=== PATIENT | female | born 1950 | race Caucasian/White ===

== ENCOUNTER 2017-06-29 15:29 | Outpatient (CLI) | payer OTHER | END 2017-06-29 15:44 | disposition home or self-care (01) | LOC: LAB 15:29 | DX: N39.0 Urinary tract infection, site not specified (principal) ==

== ENCOUNTER 2017-06-29 15:38 | Outpatient (CLI) | payer OTHER | END 2017-06-29 15:49 | disposition home or self-care (01) | LOC: RAD 15:38 | DX: M25.561 Pain in right knee (principal); M15.8 Other polyosteoarthritis ==

== ENCOUNTER 2018-09-04 11:33 | Outpatient (CLI) | payer OTHER | END 2018-09-04 13:47 | disposition home or self-care (01) | LOC: LAB 11:33 | DX: R10.13 Epigastric pain (principal) ==

== ENCOUNTER → 2018-09-05 | Outpatient (CLI) | payer OTHER | END | disposition home or self-care (01) | LOC: TOM 08:45 | DX: R10.13 Epigastric pain (principal) ==

== ENCOUNTER 2018-09-11 10:06 | Outpatient (CLI) | payer OTHER | END 2018-09-11 12:02 | disposition home or self-care (01) | LOC: LAB 10:06 | DX: E78.49 Other hyperlipidemia (principal) ==

== ENCOUNTER → 2018-12-14 11:22 | Outpatient (CLI) | payer OTHER | END | disposition home or self-care (01) | LOC: LAB 11:22 | DX: R31.21 Asymptomatic microscopic hematuria (principal); N39.0 Urinary tract infection, site not specified ==

== ENCOUNTER 2019-03-14 10:55 | Outpatient (CLI) | payer OTHER | END 2019-03-14 11:02 | disposition home or self-care (01) | LOC: SONOGRAMA 10:55 | DX: R10.2 Pelvic and perineal pain (principal) ==

== ENCOUNTER 2021-03-04 10:40 | Outpatient (CLI) | payer OTHER | END 2021-03-04 10:41 | disposition home or self-care (01) | LOC: LAB 10:40 | PROVIDERS: ATTEND Internal Medicine | DX: E78.2 Mixed hyperlipidemia (principal); E11.9 Type 2 diabetes mellitus without complications; D64.89 Other specified anemias; N39.0 Urinary tract infection, site not specified; E03.8 Other specified hypothyroidism; Z12.11 Encounter for screening for malignant neoplasm of colon; M19.90 Unspecified osteoarthritis, unspecified site; E55.9 Vitamin D deficiency, unspecified ==

== ENCOUNTER 2021-04-07 11:12 | Outpatient (CLI) | payer OTHER | END 2021-04-07 11:13 | disposition home or self-care (01) | LOC: NUCLEAR 11:12 | PROVIDERS: ATTEND Internal Medicine | DX: M81.0 Age-related osteoporosis without current pathological fracture (principal) ==

== ENCOUNTER 2021-04-07 12:56 | Outpatient (CLI) | payer OTHER | END 2021-04-07 13:00 | disposition home or self-care (01) | LOC: SONOGRAMA 12:56 → MAMO-SONO 12:56 | PROVIDERS: ATTEND Internal Medicine | DX: N60.11 Diffuse cystic mastopathy of right breast (principal); N60.12 Diffuse cystic mastopathy of left breast; Z12.31 Encounter for screening mammogram for malignant neoplasm of breast; R10.84 Generalized abdominal pain ==

== ENCOUNTER 2022-10-31 07:47 | Outpatient (CLI) | payer OTHER | END 2022-10-31 07:53 | disposition home or self-care (01) | LOC: SONOGRAMA 07:47 | PROVIDERS: ATTEND Internal Medicine | DX: R10.84 Generalized abdominal pain (principal); D25.9 Leiomyoma of uterus, unspecified ==

== ENCOUNTER 2022-10-31 08:51 | Outpatient (CLI) | payer OTHER | END 2022-10-31 09:04 | disposition home or self-care (01) | LOC: LAB 08:51 | PROVIDERS: ATTEND Internal Medicine | DX: D64.9 Anemia, unspecified (principal); I10 Essential (primary) hypertension; E11.9 Type 2 diabetes mellitus without complications; E03.8 Other specified hypothyroidism; E78.2 Mixed hyperlipidemia; R97.0 Elevated carcinoembryonic antigen [CEA]; R97.1 Elevated cancer antigen 125 [CA 125] ==

== ENCOUNTER → 2024-10-14 08:38 | Outpatient (CLI) | payer OTHER ==
[2024-10-14 09:49] LABS: PH,URINE 6.5 (5.0-8.0); URINE APPEARANCE Clear; URINE BILIRRUBIN Negative (NEGATIVE); URINE BLOOD Moderate; URINE COLOR Yellow; URINE GLUCOSE Negative (NEGATIVE); URINE KETONE Negative (NEGATIVE); URINE LEUKOCYTE Negative; URINE NITRATE Negative; URINE PROTEIN Negative (NEGATIVE)
[2024-10-14 09:54] LABS: URINE EPITHELIAL CELLS 2.2 uL (0.0-38.8); URINE RBC 60.6 uL (0.0-20.8)
[2024-10-14 10:13] LABS: URINE BACTERIA 3.6 uL (0.0-1933)
[2024-10-14 10:16] LABS: BASO % 0.9 % (0.1-1.2); EOS # 0.06 (0.04-0.54); EOS % 1.8 % (0.7-7.0); HEMOGLOBIN 12.1 g/dL (11.2-15.7); LYMPH # 1.06 (1.18-3.74); LYMPH % 31.8 % (19.3-53.1); MONO # 0.36 (0.24-0.82); MONO % 10.8 % (4.7-12.5); NEUT # 1.81 (1.56-6.13); NEUT % 54.4 % (34.0-71.1); PLATELET COUNT 237 K/uL (163-369); RED BLOOD COUNT 4.04 M/uL (3.93-5.22); RED CELL DISTRIBUTION WIDTH 12.2 % (11.6-14.4)
[2024-10-14 11:06] LABS: ALBUMIN 3.8 gm/dL (3.4-5.0); ALKALINE PHOSPHATASE 61 U/L (50-136); ALT/SGPT 22 U/L (12-78); ANION GAP 7 (10.0-20.0); AST/SGOT 20 U/L (15-37); BILIRUBIN TOTAL 0.63 mg/dL (0.3-1.2); BLOOD UREA NITROGEN 15 mg/dL (7-18); BUN CREA RATIO 26 (7.0-25.0); CARBON DIOXIDE 28 mEq/L (21-32); CHLORIDE 104 mmol/L (98-107); CHOL HDL RATIO 1.9 (0-5.0); CHOLESTEROL 213 mg/dL (0-200); CREATININE SERUM 0.57 mg/dL (0.55-1.02); GFR 104.26; GLOBULINA 3.2 G/DL (2.4-3.5); GLUCOSE FASTING 86 mg/dL (65-100); HDL 115 mg/dl (40-60); LDL 85 mg/dl (0-130); OSMOLALITY SERUM 270 MOSM/KG (275-295); POTASSIUM 4.47 mEq/L (3.5-5.1); SODIUM 135 mmol/L (136-145); TRIGLYCERIDES 66 mg/dL (0-150); VLDL 13 (0-39)
[2024-10-14 11:13] LABS: C-REACTIVE PROTEIN < 0.29 MG/DL (0.00-0.29)
[2024-10-15 09:08] LABS: CA 125 8.4 U/mL (0.0-38.1); HOMOCYSTEINE 8.3 umol/L (0.0-19.2)
== END | disposition home or self-care (01) ==
LOC: LAB 08:38
PROVIDERS: ATTEND Internal Medicine
DX: K62.5 Hemorrhage of anus and rectum (principal); E03.9 Hypothyroidism, unspecified; E11.9 Type 2 diabetes mellitus without complications; E78.5 Hyperlipidemia, unspecified; D64.9 Anemia, unspecified; I10 Essential (primary) hypertension; E78.2 Mixed hyperlipidemia; N39.0 Urinary tract infection, site not specified; E55.9 Vitamin D deficiency, unspecified; Z12.11 Encounter for screening for malignant neoplasm of colon; M19.90 Unspecified osteoarthritis, unspecified site; E72.11 Homocystinuria

== ENCOUNTER 2024-10-16 13:07 | Outpatient (CLI) | payer OTHER | END 2024-10-16 13:09 | disposition home or self-care (01) | LOC: NUCLEAR 13:07 | PROVIDERS: ATTEND Internal Medicine | DX: M81.0 Age-related osteoporosis without current pathological fracture (principal) ==

== ENCOUNTER 2024-10-21 08:50 | Outpatient (CLI) | payer OTHER | END 2024-10-21 08:52 | disposition home or self-care (01) | LOC: SONOGRAMA 08:50 | PROVIDERS: ATTEND Internal Medicine | DX: R10.84 Generalized abdominal pain (principal) ==

== ENCOUNTER → 2024-10-21 09:54 | Outpatient (CLI) | payer OTHER ==
[2024-10-21 11:54] LABS: ob NEGATIVE (NEGATIVE)
== END | disposition home or self-care (01) ==
LOC: LAB 09:54
PROVIDERS: ATTEND Internal Medicine
DX: D64.9 Anemia, unspecified (principal); I10 Essential (primary) hypertension; E11.9 Type 2 diabetes mellitus without complications; E78.2 Mixed hyperlipidemia; E03.9 Hypothyroidism, unspecified; N39.0 Urinary tract infection, site not specified; E55.9 Vitamin D deficiency, unspecified; Z12.11 Encounter for screening for malignant neoplasm of colon; E72.11 Homocystinuria; M19.90 Unspecified osteoarthritis, unspecified site

== ENCOUNTER 2024-10-23 07:41 | Outpatient (CLI) | payer OTHER | END 2024-10-23 07:52 | disposition home or self-care (01) | LOC: MAMO-SONO 07:41 | PROVIDERS: ATTEND Internal Medicine | DX: N60.11 Diffuse cystic mastopathy of right breast (principal); N60.12 Diffuse cystic mastopathy of left breast; Z12.31 Encounter for screening mammogram for malignant neoplasm of breast ==

== ENCOUNTER 2024-12-04 07:41 | Outpatient (CLI) | payer OTHER | END 2024-12-04 07:50 | disposition home or self-care (01) | LOC: TOM 07:41 | PROVIDERS: ATTEND Colon & Rectal Surgery | DX: K56.600 Partial intestinal obstruction, unspecified as to cause (principal) ==